=== PATIENT | female | born 1995 | race African-American/Black ===

== ENCOUNTER 2016-11-04 10:13 | Emergency (ER) | payer SELFPAY ==
[~2016-11-04] VITALS: Ht 165.1 cm; Wt 68.0 kg
[2016-11-04 10:17] VITALS: BP 11/69
[2016-11-04 10:41] LABS: BILIRUBIN,URINE NEGATIVE (NEG); GLUCOSE,URINE NEGATIVE (NEG); NITRITE,URINE NEGATIVE (NEG); PROTEIN,URINE NEGATIVE (NEG-TRACE); UROBILINOGEN,URINE 0.2 mg/dL (0.2 mg/dL)
--- NOTE | 2016-11-04 10:46 | PHYS DOC ---
Past Medical History Past Medical History: No Pertinent History Past Surgical History: No Surgical History Alcohol Use: Occasionally Drug Use: Marijuana Adult General Chief Complaint Chief Complaint: SEXUALLY TRANSMITTED DISEASE HPI HPI Patient is a 21 year old female with no significant medical history who presents with concern for STDs. Patient states she got exposed to STDs but the boyfriend will not be clear white STD has. Patient would like to be tested and treated. Patient states she has foul-smelling vaginal discharge for a couple days. Review of Systems Review of Systems Constitutional: Denies fever or chills [] GI: Denies abdominal pain, nausea, vomiting, bloody stools or diarrhea [] : Concern for STDs, foul-smelling discharge. Musculoskeletal: Denies back pain or joint pain [] Integument: Denies rash or skin lesions [] Neurologic: Denies headache, focal weakness or sensory changes [] Current Medications Current Medications Current Medications Medications (Trade) Dose Ordered Sig/Delma Start Time Stop Time Status Last Admin Dose Admin Azithromycin (Zithromax) 1,000 mg 1X ONCE 11/04/16 11:00 11/04/16 11:01 DC 11/04/16 10:53 1,000 MG Ceftriaxone Sodium (Rocephin Im) 250 mg 1X ONCE 11/04/16 11:00 11/04/16 11:01 DC 11/04/16 10:53 250 MG Metronidazole (Flagyl) 2,000 mg 1X ONCE 11/04/16 11:00 11/04/16 11:01 DC 11/04/16 10:53 2,000 MG Allergies Allergies Allergies Coded Allergies Type Severity Reaction Last Updated Verified No Known Drug Allergies 11/04/16 No Physical Exam Physical Exam Constitutional: Well developed, well nourished, no acute distress, non-toxic appearance. [] Abdomen: Bowel sounds normal, soft, no tenderness, no masses, no pulsatile masses. [] Pelvic exam External pelvic appears normal, cervix is closed, no CMT, no adnexal tenderness , small amount of white discharge in the vaginal vault. Skin: Warm, dry, no erythema, no rash. [] Back: No tenderness, no CVA tenderness. [] Extremities: No tenderness, no cyanosis, no clubbing, ROM intact, no edema. [] Neurologic: Alert and oriented X 3, normal motor function, normal sensory function, no focal deficits noted. [] Psychologic: Affect normal, judgement normal, mood normal. [] Current Patient Data Vital Signs Vital Signs Date Time Temp Pulse Resp B/P (MAP) Pulse Ox O2 Delivery O2 Flow Rate FiO2 11/04/16 10:17 98.5 61 16 100 Room Air 98.5 Lab Values Laboratory Tests Test 11/04/16 10:25 Urine Collection Type Unknown Urine Color Yellow Urine Clarity Clear Urine pH 6.0 Urine Specific [place] 1.010 Urine Protein Negative mg/dL (NEG-TRACE) Urine Glucose (UA) Negative mg/dL (NEG) Urine Ketones (Stick) Negative mg/dL (NEG) Urine Blood Negative (NEG) Urine Nitrite Negative (NEG) Urine Bilirubin Negative (NEG) Urine Urobilinogen Dipstick 0.2 mg/dL (0.2 mg/dL) Urine Leukocyte Esterase Negative (NEG) Urine RBC 0 /HPF (0-2) Urine WBC 0 /HPF (0-4) Urine Squamous Epithelial Cells Mod /LPF Urine Bacteria 0 /HPF (0-FEW) Urine Mucus Slight /LPF Microbiology 11/04/16 Wet Prep - Final, Complete EKG EKG [] Radiology/Procedures Radiology/Procedures [] Course & Med Decision Making Course & Med Decision Making Pertinent Labs and Imaging studies reviewed. (See chart for details) This is a 21-year-old female patient who presents to the ED after STD exposure. Swabs were obtained as well as urine. Patient was treated prophylaxis with Flagyl, Rocephin and azithromycin, she was educated on safe sex practices especially the need to use protection at all times. She is to follow-up with the health department further STD concerns. Discharged with Flagyl to complete bacterial vaginosis treatment. Dragon Disclaimer Dragon Disclaimer This electronic medical record was generated, in whole or in part, using a voice recognition dictation system. Departure Departure Impression: Primary Impression: Concern about STD in female without diagnosis Additional Impression: BV (bacterial vaginosis) Disposition: 01 HOME, SELF-CARE Condition: STABLE Patient Instructions: Bacterial Vaginosis, [id number], Sexually Transmitted Disease, [id number] Additional Instructions: You were seen and treated for STDs in the emergency room. We will call you in 3 days if your specimens are positive for STDs. If you don't hear from us your specimens are probably negative. Use protection at all times. Contact all your sex partners, let them know you were treated for STDs and ask them to seek treatment too. You also tested positive for bacterial vaginosis, this is not an STD. It's treated with Flagyl. We sent you home with medication for treating it. Take it as prescribed. Scripts Metronidazole (FLAGYL) 500 Mg Tablet 1 TAB PO BID, #10 TAB Prov: RUPERTO VICTOR APRN 11/04/16 Problem Qualifiers RUPERTO VICTOR APRN Nov 04, 2016 10:46
[2016-11-04] MEDS ORDERED: metroNIDAZOLE 500 MG TABLET PO ONE (11:00)
[2016-11-04] MEDS ORDERED: AZITHROMYCIN 250 MG TABLET. PO ONE (11:00)
[2016-11-04] MEDS ORDERED: cefTRIAXone IM 250 MG VIAL IM ONE (11:00)
[2016-11-04 11:04] LABS: SQUAMOUS EPITHELIAL CELL,UR MOD /LPF
[2016-11-04 11:05] LABS: BACTERIA,URINE 0 /HPF (0-FEW); RBC,URINE 0 /HPF (0-2); WBC,URINE 0 /HPF (0-4)
[2016-11-04] MEDS ORDERED: METR500T PO (11:10)
== END 2016-11-04 11:19 | disposition home or self-care (01) ==
LOC: ER 10:13
DX: N76.0 Acute vaginitis (principal); B96.89 Other specified bacterial agents as the cause of diseases classified elsewhere; Z20.2 Contact with and (suspected) exposure to infections with a predominantly sexual mode of transmission; F12.10 Cannabis abuse, uncomplicated
CPT/HCPCS: 81001; 81025; 87491; 87591; 96372; 99284; J0696; Q0111; Q0144

== ENCOUNTER 2017-04-25 11:07 | Emergency (ER) | payer SELFPAY ==
[~2017-04-25 11:07] MED LIST: METR500T PO
== END 2017-04-25 11:59 | disposition left against medical advice (07) ==
LOC: ER 11:07
DX: Z11.3 Encounter for screening for infections with a predominantly sexual mode of transmission (principal); Z53.21 Procedure and treatment not carried out due to patient leaving prior to being seen by health care provider

== ENCOUNTER 2017-05-06 09:00 | Emergency (ER) | payer SELFPAY ==
[2017-05-06 09:20] LABS: URINE HCG POC HCG NEGATIVE (Negative)
[2017-05-06 10:29] LABS: BILIRUBIN,URINE NEGATIVE (NEG); CLARITY,URINE CLEAR; COLOR,URINE YELLOW; GLUCOSE,URINE NEGATIVE (NEG); NITRITE,URINE NEGATIVE (NEG); PH,URINE 5.5; PROTEIN,URINE NEGATIVE (NEG-TRACE); UROBILINOGEN,URINE 0.2 mg/dL (0.2 mg/dL)
[2017-05-06 10:48] LABS: BACTERIA,URINE FEW /HPF (0-FEW); RBC,URINE 0 /HPF (0-2); SQUAMOUS EPITHELIAL CELL,UR MANY /LPF
[2017-05-06] MEDS: cefTRIAXone IM 250 MG VIAL IM (10:50)
[2017-05-06] MEDS: AZITHROMYCIN 250 MG TABLET. PO (10:50)
[2017-05-06] MEDS: metroNIDAZOLE 500 MG TABLET PO (10:50)
[2017-05-08 19:12] LABS: CHLAMYDIA PROBE Positive (Negative); GC PROBE Negative (Negative)
== END 2017-05-06 11:44 | disposition home or self-care (01) ==
LOC: ER 09:00
DX: Z20.2 Contact with and (suspected) exposure to infections with a predominantly sexual mode of transmission (principal); N76.0 Acute vaginitis; B96.89 Other specified bacterial agents as the cause of diseases classified elsewhere; J45.909 Unspecified asthma, uncomplicated; F43.10 Post-traumatic stress disorder, unspecified; F31.9 Bipolar disorder, unspecified; F41.9 Anxiety disorder, unspecified; F12.10 Cannabis abuse, uncomplicated; F10.20 Alcohol dependence, uncomplicated
CPT/HCPCS: 81001; 81025; 87491; 87591; 96372; 99284-25; J0696; Q0111; Q0144